=== PATIENT | male | born 1975 | race Native Hawaiian/Other Pacific Islander ===

== ENCOUNTER 2018-03-15 07:17 | Outpatient (CLI) | payer OTHER | END 2018-03-15 07:18 | disposition home or self-care (01) | LOC: C.LAB 07:17 | DX: E78.00 Pure hypercholesterolemia, unspecified (principal); R31.21 Asymptomatic microscopic hematuria; R73.09 Other abnormal glucose; Z00.00 Encounter for general adult medical examination without abnormal findings; Z68.22 Body mass index [BMI] 22.0-22.9, adult ==